=== PATIENT | male | born 1995 | race Caucasian/White ===

== ENCOUNTER 2016-07-31 11:54 | Emergency (ER) | payer OTHER ==
[2016-07-31 12:00] VITALS: BP 128/77; PULSE 80; RESP 20; TEMP 98; O2SAT 98
--- NOTE | 2016-07-31 13:00 | C.PDOC ---
History Of Present Illness 20 y/o male presents to the ED with complains of body aches, tactile fever and sore throat which gradually developed over the past 3 days. Pt denies headache, dizziness, drooling, cough, abdominal pain, nausea, vomiting, SOB or any other complaints. Time Seen by Provider: 07/31/16 12:29 Chief Complaint (Nursing): Flu-like Symptoms History Per: Patient History/Exam Limitations: no limitations Onset/Duration Of Symptoms: Days, Gradual Current Symptoms Are (Timing): Worse Location Of Pain: Throat, Diffuse Myalgias Sick Contacts (Context): None Associated Symptoms: Fever, Sore Throat. denies: Cough, Vomiting, Diarrhea Severity: Mild Recent travel outside of the [place]: No Past Medical History Reviewed: Historical Data, Nursing Documentation, Vital Signs Vital Signs: Last Vital Signs Temp 98 F 07/31/16 11:58 Pulse 80 07/31/16 11:58 Resp 20 07/31/16 11:58 BP 128/77 07/31/16 11:58 Pulse Ox 98 07/31/16 13:02 Family History: States: Unknown Family Hx - Social History Hx Alcohol Use: No Hx Substance Use: No - Immunization History Hx Tetanus Toxoid Vaccination: No Hx Influenza Vaccination: No Hx Pneumococcal Vaccination: No Review Of Systems Except As Marked, All Systems Reviewed And Found Negative. Constitutional: Positive for: Fever, Other (body aches) ENT: Positive for: Throat Pain, Other (no drooling) Respiratory: Negative for: Cough Gastrointestinal: Negative for: Nausea, Vomiting, Abdominal Pain Neurological: Negative for: Headache, Dizziness Physical Exam - Physical Exam Appears: Well, Non-toxic, No Acute Distress Skin: Warm, Dry, No Rash Head: Normacephalic Eye(s): bilateral: Normal Inspection Ear(s): Bilateral: Normal Nose: Normal, No Discharge Oral Mucosa: Moist, No Drooling, No Trismus Tongue: Normal Appearing Lips: Normal Appearing Throat: Erythema (B/L), No Exudate, No Drooling, Other (pharyngeal edema, tonsillar enlaregement) Neck: Normal, Normal ROM, Supple Chest: Symmetrical Cardiovascular: Rhythm Regular, No Murmur Respiratory: Normal Breath Sounds, No Rales, No Rhonchi, No Wheezing Gastrointestinal/Abdominal: Normal Exam, Soft, No Tenderness Extremity: Normal ROM, No Pedal Edema, No Deformity Extremity: Bilateral: Atraumatic Neurological/Psych: Oriented x3, Normal Speech ED Course And Treatment O2 Sat by Pulse Oximetry: 98 (on room air) Pulse Ox Interpretation: Normal Progress Note: On re-eavluation, pt is afebrile, hemodynamicaly stable. Non- toxic. Tolerate Po well in ED. PuslEOx 98% RA. ENT: exam c/w acute pharyngitis. uvula midline, no edema. Neck: (-) meningeal sign. Lungs: CTA B/L , BS equal B/L. Abd: benign. Pt advised. ref. to F/u with PMD In 2-3 days for re-evaluation. Return to ED if any worsening or new changes. Disposition Counseled Patient/Family Regarding: Diagnosis, Need For Followup, Rx Given - Disposition Referrals: [facility] [Outside] Disposition: HOME/ ROUTINE Disposition Time: 13:13 Condition: STABLE Additional Instructions: Encourage fluids Take medication as prescribed Follow up with PMD In 2-3 days for re-evaluation. Return to ED if any worsening or new changes. Prescriptions: Amoxicillin/Clavulanate [Augmentin 875 MG-125 MG] 1 tab PO BID #14 tab Ibuprofen [Motrin] 600 mg PO Q6 #20 tab Instructions: Pharyngitis (ED) Print Language: CITIZEN OF [place] - Clinical Impression Clinical Impression: Acute pharyngitis - PA / RIVET TOSSER / Resident Statement MD/DO has reviewed & agrees with the documentation as recorded. - Scribe Statement The provider has reviewed the documentation as recorded by the Vanita Fountain All medical record entries made by the Vanita were at my direction and personally dictated by me. I have reviewed the chart and agree that the record accurately reflects my personal performance of the history, physical exam, medical decision making, and the department course for this patient. I have also personally directed, reviewed, and agree with the discharge instructions and disposition.
[2016-07-31] MEDS ORDERED: Amoxicillin-Clav 875-125 mg Tab PO STA (13:13)
[2016-07-31] MEDS ORDERED: Amoxicillin-Clav 875-125 mg Tab PO ONE (13:32)
== END 2016-07-31 13:56 | disposition home or self-care (01) ==
LOC: C.ER 11:54
DX: J02.9 Acute pharyngitis, unspecified (principal)